=== PATIENT | male | born 1985 | race Hispanic/Latino ===

== ENCOUNTER 2017-01-26 13:52 | Emergency (ER) | payer OTHER ==
[~2017-01-26] VITALS: Ht 172.7 cm; Wt 151.8 kg
[2017-01-26 13:58] VITALS: BP 129/80; PULSE 91; RESP 20; O2SAT 98
--- NOTE | 2017-01-26 15:17 | ED.REPORT ---
HPI-Eye Problem Date of Service Jan 26, 2017 ED Provider: Doc,Ed MD History of Present Illness: wears contacts, started last week, was using OTC lubricantion, slowly getting worse, tearing sensitive to light. white yellow discharge. stopped contacts last week. saw cecilia for eye wears contacts during the day, take them out at night. Nursing Notes Stated Complaint: RT EYE PAIN,SENT BY URGENT CARE Chief Complaint: Eye Nursing Notes Reviewed: Yes Allergies: Coded Allergies: hydrocodone (Verified Allergy, Intermediate, rash, 01/26/17) General Time Seen by MD: 15:15 Chief Complaint Right eye affected Hx Obtained From: Patient Sudden in Onset?: No Symptom Duration: 1 week Location: : Eye right Past Medical History Past Medical History Denies: Asthma, Diabetes mellitus Past Surgical History denies Smoking History Current Every Day Smoker (daily for 2 years) Social History Alcohol Use: Denies alcohol use Drug Use: Denies drug use 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, 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 Ambulatory Status Independent Review of Systems Basic Review of Systems Respiratory: No shortness of breath, No cough, No wheeze : No dysuria, No frequency Psychiatric: Normal thought content Physical Exam Initial Vital Signs Vital Signs (First) Date Time Temp Pulse Resp B/P Pulse Ox O2 Delivery O2 Flow Rate FiO2 01/26/17 13:58 36.7 91 20 129/80 98 Room Air Initial VS: Reviewed, Vital signs normal General / Const: Well-developed, Well-nourished ENT: Mucous membranes moist, Conjunctiva normal, No scleral icterus Neck: Supple, Non-tender, Full range of motion Respiratory: Breath sounds normal, Clear to auscultation, No respiratory distress Cardiovascular: Regular rate & rhythm, Heart sounds normal, Intact distal pulses Abdomen / GI: Soft, Non-tender, No guarding, No rebound, No distention Back: No CVA tenderness Lymphatic: No lymphadenopathy Extremities: Vascular intact, Neuro intact, No swelling, No tenderness Skin: Warm, Dry, No cyanosis Neurologic: Alert, Oriented, Nonfocal Psychiatric: Mood/affect normal, Behavior normal, Normal thought content Head / Eyes: PERRL, No photophobia (significant ) conjunctivia injected, no flourscein uptake. Presure at 29 and 31 in right eye. Visual acuity is 20/60 in the right 20/20 on the left. Unable to visualize the palencia of the retina in either eye General/Constitutional: Awake, Alert, No acute distress, Well appearing, Well developed, Well hydrated Respiratory / Chest: Atraumatic, Breath sounds NL, Breath sounds = bilat, No respiratory distress Cardiovascular: Heart rate NL, Regular rhythm, Heart sounds NL, No gallop Procedures Slit Lamp Exam Which Eye: Right Re-Eval/Medical Decision Med Decision/Clinical Course 31 year old male presents for evualation of right eye photophobia and tearing for 1 week. Pressure is evelvated at 29 and 31. Visuaol acuity is 20/60 in the right. Unable to visualize the back of the eye in either eye. Opth consult obtained, patient to present to clinic immediately. Patient discharged with driving instructions to [facility]. Discharge & Departure Primary Impression: Eye abnormality Additional Instructions: Please go directly to [address] [facility]. They will see you today. Referrals: NOPCP (PCP) EDSupervising Provider for APC: Vicente Fink MD copies to: OTHER,PHYSICIAN Noris Majano Jan 26, 2017 15:17
[2017-01-26] MEDS ORDERED: Fluorescein 0.6 mg Ophthalmic Strip ONE (15:25)
[2017-01-26] MEDS ORDERED: Tetracaine 0.5% 4 mL Ophthalmic Solution RIGHT_EYE ONE (15:25)
[2017-01-26] MEDS ORDERED: 0.9% Sodium Chloride Inhalation Solution ONE (15:25)
== END 2017-01-26 18:11 ==
LOC: SED 13:52
DX: H57.8 Other specified disorders of eye and adnexa (principal); F17.200 Nicotine dependence, unspecified, uncomplicated; Z88.5 Allergy status to narcotic agent
CPT/HCPCS: 99283; G0463